=== PATIENT | male | born 1985 | race Caucasian/White ===

== ENCOUNTER 2020-03-20 07:37 | Day surgery (SDC) | payer OTHER ==
[~2020-03-20] VITALS: Ht 182.9 cm; Wt 81.8 kg
[2020-03-20 08:47] VITALS: BP 119/81
[2020-03-20] MEDS ORDERED: ISOPROTERENOL 0.2MG/ML, 5ML ONE (09:20)
== END 2020-03-20 10:14 | disposition home or self-care (01) ==
LOC: CACL 07:37 → EDSTATUS 09:00 → CACL 10:14
PROVIDERS: ATTEND Internal Medicine Cardiovascular Disease
DX: R55 Syncope and collapse (principal)
CPT/HCPCS: 93306; 93356; 93660